=== PATIENT | female | born 1945 | race Caucasian/White ===

== ENCOUNTER 2016-08-27 09:45 | Observation (INO) | payer OTHER ==
[~2016-08-27] VITALS: Ht 154.9 cm; Wt 79.4 kg
--- NOTE | 2016-08-27 09:50 | NUR ---
PT COMPLAINS OF 2 DAYS OF FEELING DIZZY WHEN SHE CHANGES POSITION. DENIES CP/SOB. CALLED HER PMD BUT THEY COULDN'T GET HER IN UNTIL 430 THIS AFTERNOON. ALSO STATES THAT WHEN SHE GETS DIZZY SHE HAS NAUSEA
--- NOTE | 2016-08-27 09:54 | ED AMS/SEIZURE/WEAK/DIZZY ---
History of Present Illness General Chief Complaint: Dizziness Stated Complaint: DIZZY,NAUSEA X 2 DAYS Vital Signs & Intake/Output Vital Signs & Intake/Output Vital Signs Date Time Temp Pulse Resp B/P B/P Pulse O2 O2 Flow FiO2 Mean Ox Delivery Rate 08/28 1212 97.0 51 18 128/64 96 Room Air Room Air 08/28 0946 62 181/75 08/28 0905 96.8 55 20 181/75 95 Room Air 08/28 0532 97.1 52 16 133/77 97 08/27 2331 96.6 57 16 131/64 95 Room Air 08/27 2020 96.5 55 20 124/62 97 Room Air 08/27 1806 56 16 138/60 97 Room Air Room Air 08/27 1700 53 16 150/66 98 Room Air 08/27 1544 97.9 53 16 176/72 98 Room Air ED Intake and Output 08/28 0000 08/27 1200 Intake Total Output Total Balance Patient 175 lb Weight Allergies Coded Allergies: No Known Allergies (08/27/16) Reconcile Medications Atorvastatin Calcium 80 MG TABLET 20 MG PO 1700 HIGH CHOLESTEROL Meclizine HCl 12.5 MG TABLET 12.5 MG PO TID PRN DIZZINESS/VERTIGO Meloxicam 15 MG TABLET 1 TAB PO DAILY PAIN (Reported) Triage Note: PT COMPLAINS OF 2 DAYS OF FEELING DIZZY WHEN SHE CHANGES POSITION. DENIES CP/SOB. CALLED HER PMD BUT THEY COULDN'T GET HER IN UNTIL 430 THIS AFTERNOON. ALSO STATES THAT WHEN SHE GETS DIZZY SHE HAS NAUSEA Past History Travel History Traveled to [place] past 21 day No Medical History Neurological: NONE EENT: NONE Cardiovascular: NONE Respiratory: NONE Gastrointestinal: NONE Hepatic: NONE Renal: NONE Musculoskeletal: rheumatoid arthritis Psychiatric: NONE Endocrine: NONE Blood Disorders: NONE Cancer(s): NONE UNIT REACTOR OPERATOR/Reproductive: NONE Psychosocial History What is your primary language Northern Irish Tobacco Use: Never used ETOH Use: denies use Illicit Drug Use: denies illicit drug use Progress Plan of Care: Orders Procedure Date/time Status Vital Signs 08/28 0838 Active Teach/Educate 08/28 0838 Active Pain Treatment and Response 08/28 08 Active Nutritional Intake, Monitor 08/28 0838 Active Isolation 08/28 0838 Active Intake & Output 08/28 0838 Active Patient Care Conference 08/28 0838 Active Activity/Ambulation 08/28 0838 Active Change service to 08/28 0834 Active CBC WITHOUT DIFFERENTIAL 08/28 0600 Complete BASIC ELECTROLYTES PLUS BUN&CR 08/28 0600 Complete EKG 08/28 0106 Active Discharge Patient 08/28 UNK Active Regular Diet 08/27 D Active TROPONIN LEVEL 08/27 1703 Complete PT Evaluate & Treat 08/[address] in observation 08/27 1523 Active Pathway - chart 08/27 1517 Active Patient Data 08/27 1517 Active Code Status 08/27 1517 Active Add-on Test (ER Only) 08/27 1453 Active [place] Coma Scale 08/27 1312 Active Intake & Output 08/27 1100 Active THYROID STIMULATING HORMONE 08/27 1038 Complete LIPID PANEL 08/27 1038 Complete GLYCOSYLATED HGB 08/27 1038 Complete House Staff 08/27 UNK Active VTE Mechanical Prophylaxis 08/27 UNK Active Vital Signs 08/27 UNK Active Telemetry/Faculty Research Physician 08/27 UNK Active NIH Stroke Scale 08/27 UNK Active Current Medications Sig/Garima Start time Last Medication Dose Stop Time Status Admin Aspirin Buffered 81 MG DAILY 08/28 1000 AC 08/28 (Ecotrin) 0945 Enoxaparin Sodium 40 MG DAILY 08/28 1000 AC 08/28 (Lovenox) 0945 Lisinopril 10 MG DAILY 08/28 1000 AC 08/28 (Prinivil) 0946 Meclizine HCl 12.5 MG TID 08/27 2200 AC 08/28 (Antivert) 0945 Atorvastatin Calcium 80 MG 1700 08/27 1700 AC 08/27 (Lipitor) 2308 Acetaminophen 650 MG Q6P PRN 08/27 1530 AC (Tylenol) Acetaminophen/ 1 TAB Q6P PRN 08/27 1530 AC Hydrocodone Bitart (Vicodin) Oxycodone HCl 10 MG Q6P PRN 08/27 1530 AC (Roxicodone) Laboratory Tests 08/28/16 0530: Anion Gap 5, Estimated GFR > 60, BUN/Creatinine Ratio 28.6 H, CBC w Diff NO MAN DIFF REQ, RBC 4.37, MCV 88.4, MCH 29.4, RDW 15.4 H, MPV 9.3, Gran % 35.7 L, Lymphocytes % 53.8 H, Monocytes % 8.5, Eosinophils % 1.2, Basophils % 0.8, Absolute Granulocytes 1.9, Absolute Lymphocytes 2.9, Absolute Monocytes 0.5, Absolute Eosinophils 0.1, Absolute Basophils 0, PUBS MCHC 33.3 08/27/16 1801: Troponin I < 0.01 Departure Departure Condition: Stable Referrals: BRAULIO CELIS,LYDIA Holliday (PCP/Family) Departure Forms: Customer Survey General Discharge Information Prescriptions: Current Visit Scripts Meclizine HCl 12.5 MG PO TID PRN DIZZINESS/VERTIGO #30 TAB Atorvastatin Calcium 20 MG PO 1700 #30 TAB
--- NOTE | 2016-08-27 10:30 | NUR ---
IV EST #20 LABS DRAWN AND SENT TO THE LAB
[2016-08-27] MEDS ORDERED: MELOXICAM15 M1 PO (10:43)
[2016-08-27 10:50] LABS: ABSOLUTE BASOPHIL COUNT 0.1 /CUMM (0.0-0.2); ABSOLUTE EOSINOPHIL COUNT 0.1 /CUMM (0.0-0.7); ABSOLUTE GRANULOCYTE CT 2.3 /CUMM (1.4-6.5); ABSOLUTE LYMPH COUNT 2.2 /CUMM (1.2-3.4); ABSOLUTE MONOCYTE COUNT 0.4 /CUMM (0.10-0.60); BASOPHIL % 1.1 % (0.0-2.0); EOSINOPHIL % 1.1 % (0-5); GRANULOCYTE % 45.9 % (42.2-75.2); HEMATOCRIT 40.4 % (37-47); MEAN CORPUSCULAR HGB 29.5 PG (27.0-31.0); MEAN CORPUSCULAR HGB CONC 33.4 G/DL (33.0-37.0); MEAN CORPUSCULAR VOLUME 88.3 FL (81.0-99.0); MEAN PLATELET VOLUME 9.1 FL (7.4-10.4); PLATELET COUNT 233 /CUMM (130-400); RBC DISTRIBUTION WIDTH 15.9 % (11.5-14.5); RED BLOOD CELL CT 4.58 /CUMM (4.20-5.40)
--- NOTE | 2016-08-27 10:59 | NUR ---
PT CHANGED INTO GOWN AND PLACED ON MONITOR
--- NOTE | 2016-08-27 11:04 | NUR ---
EVARISTO Villar AT BEDSIDE
--- NOTE | 2016-08-27 11:09 | ED AMS/SEIZURE/WEAK/DIZZY ---
History of Present Illness General Chief Complaint: Dizziness Stated Complaint: DIZZY,NAUSEA X 2 DAYS Source: patient Exam Limitations: no limitations Vital Signs & Intake/Output Vital Signs & Intake/Output Vital Signs Date Time Temp Pulse Resp B/P B/P Pulse O2 O2 Flow FiO2 Mean Ox Delivery Rate 08/28 1212 97.0 51 18 128/64 96 Room Air Room Air 08/28 0946 62 181/75 08/28 0905 96.8 55 20 181/75 95 Room Air 08/28 0532 97.1 52 16 133/77 97 08/27 2331 96.6 57 16 131/64 95 Room Air 08/27 2020 96.5 55 20 124/62 97 Room Air 08/27 1806 56 16 138/60 97 Room Air Room Air 08/27 1700 53 16 150/66 98 Room Air 08/27 1544 97.9 53 16 176/72 98 Room Air ED Intake and Output 08/28 0000 08/27 1200 Intake Total Output Total Balance Patient 175 lb Weight Allergies Coded Allergies: No Known Allergies (08/27/16) Triage Note: PT COMPLAINS OF 2 DAYS OF FEELING DIZZY WHEN SHE CHANGES POSITION. DENIES CP/SOB. CALLED HER PMD BUT THEY COULDN'T GET HER IN UNTIL 430 THIS AFTERNOON. ALSO STATES THAT WHEN SHE GETS DIZZY SHE HAS NAUSEA Triage Nurses Notes Reviewed? yes Onset: Abrupt Duration: gone now, intermittent Timing: recent history Severity: moderate Severity Numbers: 5 HPI: Patient is a 71-year-old female with an unremarkable past medical history who presents to emergency room with a 3 day history of acute onset of intermittent room spinning sensation and dizziness made worse with body movement and head movements. Patient has associated symptoms of chills and nausea at the time of onset of her vertigo-like symptoms.. Denies any fevers blurred vision ear pain sore throat facial droop paresthesia photophobia chest pain abdominal pain Patient does complain of a mild generalized headache. It is noted to me that when the patient's daughter does present to the emergency room she states that patient has been confused and has had unsteady gait. She denies any slurred speech or facial droop (ASHLI GEORGE) Reconcile Medications Atorvastatin Calcium 80 MG TABLET 20 MG PO 1700 HIGH CHOLESTEROL Meclizine HCl 12.5 MG TABLET 12.5 MG PO TID PRN DIZZINESS/VERTIGO Meloxicam 15 MG TABLET 1 TAB PO DAILY PAIN (Reported) (DELIA CELIS,PAYTON) Past History Travel History Traveled to [place] past 21 day No Medical History Any Pertinent Medical History? 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 No (ASHLI GEORGE) Review of Systems Review of Systems Constitutional: Reports: no symptoms. EENTM: Reports: no symptoms. Respiratory: Reports: no symptoms. Cardiovascular: Reports: no symptoms. GI: Reports: see HPI, nausea. Genitourinary: Reports: no symptoms. Musculoskeletal: Reports: no symptoms. Skin: Reports: no symptoms. Neurological/Psychological: Reports: no symptoms. Hematologic/Endocrine: Reports: no symptoms. Immunologic/Allergic: Reports: no symptoms. All Other Systems: Reviewed and Negative (ASHLI GEORGE) Physical Exam Physical Exam General Appearance: no apparent distress, alert, comfortable Comments: Well-developed well-nourished person in no acute distress HEENT: Normal EENT exam, extraocular motion intact, no nystagmus. Pupils equally round and reactive to light and accommodation. Nose is atraumatic. External auditory canal and Tympanic membranes clear. Pharynx normal. No swelling or edema. Neck: Supple, no lymphadenopathy, normal range of motion without pain or tenderness Back: Nontender, no CVA tenderness. Cardiovascular: Regular rate and rhythms no murmurs rubs or gallops, normal JVP Respiratory: Chest nontender. No respiratory distress.breath sounds clear to auscultation bilaterally Abdomen: Soft, nontender nondistended, no appreciable organomegaly. Normal bowel sounds. No ascites Extremity: No edema, no calf tenderness to palpation, normal and equal pulses. Neuro: Alert oriented x3, motor sensory normal, cranial nerves II through XII grossly intact. Modify Aurora-Hallpike reproduced room spinning sensation Skin: No appreciable rash on exposed skin, skin is warm and dry. Psych: Mood and affect is normal, memory and judgment is normal. Core Measures ACS in differential dx? No CVA/TIA Diagnosis: Yes NIH Stroke Scale: Total 0 Date Last Known Well: 08/24/16 Time Last Known Well: 1553 Neurological S/S of CVA: Acute Confusion, Dizziness Reason tPA not ordered Medical Contraindication Severe Sepsis Present: No Septic Shock Present: No Bedside Dysphagia Screen Bedside Swallow Eval Done: Yes Result of Evaluation: Pass (VIVIANA LOERA,ASHLI) Progress Differential Diagnosis: arrythmia, alcohol intoxication, anemia, benign positional vertigo, CVA/stroke, dehydration, drug intoxication, encephalitis, electrolyte imbalance, GI bleed, hypoglycemia, hypoxia, intracranial Hem., intracranial mass/tumor, labrynthitis, meningitis, Meniere's disease, migraine ESTES, multiple sclerosis, pneumonia, postural hypotension, presyncope, post- traumatic vertigo, sepsis, seizure disorder, subarachnoid Hem., UTI/pyelo, vertebrobasilar insuff Plan of Care: Orders Procedure Date/time Status Vital Signs 08/28 0838 Active Teach/Educate 08/28 0838 Active Pain Treatment and Response 08/28 0838 Active Nutritional Intake, Monitor 08/28 0838 Active Isolation 08/28 0838 Active Intake & Output 08/28 0838 Active Patient Care Conference 08/28 0838 Active Activity/Ambulation 08/28 0838 Active Change service to 08/28 0834 Active CBC WITHOUT DIFFERENTIAL 08/28 0600 Complete BASIC ELECTROLYTES PLUS BUN&CR 08/28 0600 Complete EKG 08/28 0106 Active Discharge Patient 08/28 UNK Active Regular Diet 08/27 D Active TROPONIN LEVEL 08/27 1703 Complete PT Evaluate & Treat 08/[address] in observation 08/27 1523 Active Pathway - chart 08/27 1517 Active Patient Data 08/27 1517 Active Code Status 08/27 1517 Active Add-on Test (ER Only) 08/27 1453 Active [place] Coma Scale 08/27 1312 Active Intake & Output 08/27 1100 Active THYROID STIMULATING HORMONE 08/27 1038 Complete LIPID PANEL 08/27 1038 Complete GLYCOSYLATED HGB 08/27 1038 Complete House Staff 08/27 UNK Active VTE Mechanical Prophylaxis 08/27 UNK Active Vital Signs 08/27 UNK Active Telemetry/Rib Puller 08/27 UNK Active NIH Stroke Scale 08/27 UNK Active Current Medications Sig/Garima Start time Last Medication Dose Stop Time Status Admin Aspirin Buffered 81 MG DAILY 08/28 1000 AC 08/28 (Ecotrin) 0945 Enoxaparin Sodium 40 MG DAILY 08/28 1000 AC 08/28 (Lovenox) 0945 Lisinopril 10 MG DAILY 08/28 1000 AC 08/28 (Prinivil) 0946 Meclizine HCl 12.5 MG TID 08/27 2200 AC 08/28 (Antivert) 0945 Atorvastatin Calcium 80 MG 1700 08/27 1700 AC 08/27 (Lipitor) 2308 Acetaminophen 650 MG Q6P PRN 08/27 1530 AC (Tylenol) Acetaminophen/ 1 TAB Q6P PRN 08/27 1530 AC Hydrocodone Bitart (Vicodin) Oxycodone HCl 10 MG Q6P PRN 08/27 1530 AC (Roxicodone) Laboratory Tests 08/28/16 0530: Anion Gap 5, Estimated GFR > 60, BUN/Creatinine Ratio 28.6 H, CBC w Diff NO MAN DIFF REQ, RBC 4.37, MCV 88.4, MCH 29.4, RDW 15.4 H, MPV 9.3, Gran % 35.7 L, Lymphocytes % 53.8 H, Monocytes % 8.5, Eosinophils % 1.2, Basophils % 0.8, Absolute Granulocytes 1.9, Absolute Lymphocytes 2.9, Absolute Monocytes 0.5, Absolute Eosinophils 0.1, Absolute Basophils 0, PUBS MCHC 33.3 08/27/16 1801: Troponin I < 0.01 Patient on initial presentation showed no physical exam findings of neurological dysfunction in which she was initially treated for positional vertigo with scopolamine fluids and meclizine. Patient states that she had minimal improvement of symptoms where I ambulate patient and she noted to have significant gait instability Even though the patient does have unremarkable CT scan findings the patient did come in significantly hypertensive and with physical exam findings of gait instability and confusion headache that I advised patient to be admitted for concerns of cerebral or cerebellar infarct. Patient was prophylactically administered aspirin case monitor placed House staff did discussed admission with neurologist Dr. Nelson He was aware admission and does not state that patient needs emergent MRI carotid ultrasounds will be established Discussed admission with DR LIN (ASHLI GEORGE) Diagnostic Imaging: Viewed by Me: CT Scan. Radiology Impression: no acute abnormality Initial ED EKG: normal p-waves, normal QRS complex, normal sinus rhythm, nsr, 69 bpm Comments: PATIENT: GAL OBANDO PRESENT AGE: 71 PATIENT ACCOUNT NO: [id number] : 46 LOCATION: [facility] ORDERING PHYSICIAN: ASHLI LOERA SERVICE DATE: 08/27/161105 EXAM TYPE: CAT - CT HEAD WO IV CONTRAST EXAMINATION: CT HEAD WITHOUT CONTRAST CLINICAL INFORMATION: Dizziness. Nausea. COMPARISON: None TECHNIQUE: Contiguous axial imaging was performed from the skull base to vertex without intravenous administration of contrast. DLP: 606 mGy-cm FINDINGS: There is no evidence of acute intracranial hemorrhage or territorial infarction. No abnormal mass effect or midline shift is seen. Orozco to white matter differentiation is well preserved. No extra-axial fluid collections are identified. The ventricles are normal in size. There is no significant abnormal attenuation within the brain parenchyma. The osseous structures and soft tissues demonstrate no acute abnormalities. The mastoid air cells and visualized portions of the paranasal sinuses are well aerated. IMPRESSION: No acute intracranial pathology. DICTATED BY: DOMINICK BAKER MD (SAHLI GEORGE) Departure Departure Disposition: STILL A PATIENT Condition: Guarded Clinical Impression Primary Impression: CVA (cerebral vascular accident) Referrals: LYDIA RAMSEY MD (PCP/Family) Departure Forms: Customer Survey General Discharge Information Observation Note Spoke With: DI CHOUDHURY MD Physician Advisor Notified: JUSTIN CELIS,LYDIA Dominguez Place Patient In: Non-ED OBS Care Area Rationale for Observation: My rational for observation is as follows [patient requires carotid ultrasound, MRI frequent neurochecks neurology consultation for concerns of cerebellar infarct]. (ASHLI GEORGE) Departure Prescriptions: Current Visit Scripts Meclizine HCl 12.5 MG PO TID PRN DIZZINESS/VERTIGO #30 TAB Atorvastatin Calcium 20 MG PO 1700 #30 TAB PA/POMOLOGIST Co-Sign Statement Statement: ED Attending supervision documentation- [X] I saw and evaluated the patient. I have also reviewed all the pertinent lab results and diagnostic results. I agree with the findings and the plan of care as documented in the PA's/POMOLOGIST's documentation. [X] I have reviewed the ED Record and agree with the PA's/POMOLOGIST's documentation. [] Additions or exceptions (if any) to the PAs/POMOLOGIST's note and plan are summarized below: [] (DELIA CELIS,PAYTON) Critical Care Note Critical Care Note Critical Care Time: 30-74 min (VIVIANA LOERA,ASHLI)
--- NOTE | 2016-08-27 11:10 | NUR ---
PT TO CT VIA STRETCHER
--- NOTE | 2016-08-27 11:28 | NUR ---
PT AMBULATORY TO BATHROOM WITH STAGGERING UNSTEADY GAIT. GIVEN WHEELCHAIR FOR ASSIST BACK TO ROOM
--- NOTE | 2016-08-27 12:07 | NUR ---
PT NOTED TO REMAIN HYPERTENSIVE 200/104 MANUALLY AND SINUS JERRY WITHOUT ECTOPY RATE 52-[address] LIN AWARE. MEDICATED WITH VASOTEC PER eMAR AND IMPROVEMENT NOTED WITH BP 182/76 AFTER ADMINISTRATION
--- NOTE | 2016-08-27 12:24 | CT SCAN REPORT ---
EXAMINATION: CT HEAD WITHOUT CONTRAST CLINICAL INFORMATION: Dizziness. Nausea. COMPARISON: None TECHNIQUE: Contiguous axial imaging was performed from the skull base to vertex without intravenous administration of contrast. DLP: 606 mGy-cm FINDINGS: There is no evidence of acute intracranial hemorrhage or territorial infarction. No abnormal mass effect or midline shift is seen. Orozco to white matter differentiation is well preserved. No extra-axial fluid collections are identified. The ventricles are normal in size. There is no significant abnormal attenuation within the brain parenchyma. The osseous structures and soft tissues demonstrate no acute abnormalities. The mastoid air cells and visualized portions of the paranasal sinuses are well aerated. IMPRESSION: No acute intracranial pathology.
--- NOTE | 2016-08-27 13:11 | NUR ---
AMBULATORY WITH PA WITH UNSTEADY GAIT
--- NOTE | 2016-08-27 14:51 | NUR ---
MEDICATED WITH ASPIRIN PER eMAR AND #20 EST TO [facility] FOR ANGIOGRAM CT. CALL JASSO IN [place]. OFFERS NO SIGNIFICANT COMPLAINTS AT THIS TIME. INFORMED WAITING PROVIDED.
--- NOTE | 2016-08-27 15:14 | History & Physical ---
WAQAR HASSAN MD 08/27/16 1514: General Information and HPI MD Statement: I have seen and personally examined GAL OBANDO and documented this H&P. The patient is a 71 year old F who presented with a patient stated chief complaint of [bilateral leg weakness and gait instability]. Source of Information: patient, family History of Present Illness: This 71-year-old healthy female with a past medical history of bilateral osteoarthritis of the knee who regularly takes meloxicam for pain control who presented to the [facility] after having persistent dizziness and imbalance while walking for the last 2-3 days. The patient was accompanied by her daughter at the bedside who gave most of the history regarding the patient's symptoms. As per the daughter, she has noticed that her mother has been more dizzy, feeling weak and has been having intermittent dizziness. She describes the dizziness as sudden and feels like this room is spinning around her. Dizziness is more pronounced with changes in position. This is also associated with gait instability and had couple of occasions when she nearly lost her balance and fell down but never had a fall. This is all new for the patient and has been ongoing and worsening in the last 1 week. She also complains of nausea but did not have any episode of vomiting. No difficulty swallowing or complains of dysphagia, but as per the patient's daughter she has refused to eat in the restaurant or couple of occasions in the last 1 week due to persistent nausea. The patient is not on any home medications except for meloxicam for the osteoarthritis. Allergies/Medications Allergies: Coded Allergies: No Known Allergies (08/27/16) Home Med list Meloxicam 15 MG TABLET 1 TAB PO DAILY PAIN (Reported) Past History Travel History Traveled to [place] past 21 day No Medical History Neurological: NONE EENT: NONE Cardiovascular: NONE Respiratory: NONE Gastrointestinal: NONE Hepatic: NONE Renal: NONE Musculoskeletal: osteoarthritis Psychiatric: NONE Endocrine: NONE Blood Disorders: NONE Cancer(s): NONE CUSTOMER SALES SERVICE MANAGER/Reproductive: NONE Surgical History Surgical History: non-contributory Past Family/Social History Psychosocial History Where do you live? Home Who Do You Live With? spouse, child Services at Home: None Primary Language: Iraqi Smoking Status: Never Smoked ETOH Use: denies use Illicit Drug Use: denies illicit drug use Review of Systems Review of Systems Constitutional: Reports: see HPI. Respiratory: Denies: hemoptysis, orthopnea, short of breath, sputum production. GI: Reports: abdominal pain, nausea, vomiting. Denies: constipation, diarrhea, bowel incontinence. Genitourinary: Denies: dysuria, frequency. Musculoskeletal: Reports: joint pain. Denies: back pain, gout, joint swelling. Skin: Denies: change in skin color, dryness, erythema, jaundice, lesions. Neurological/Psychological: Reports: see HPI, ataxia, numbness. Exam & Diagnostic Data Last 24 Hrs of Vital Signs/I&O Vital Signs Date Time Temp Pulse Resp B/P B/P Pulse O2 O2 Flow FiO2 Mean Ox Delivery Rate 08/27 1352 98.0 70 20 161/70 98 Room Air 08/27 1245 68 191/82 08/27 1221 60 16 180/72 96 Room Air 08/27 1206 54 16 182/76 100 Room Air 08/27 1200 55 200/104 08/27 1200 55 16 200/104 99 Room Air 08/27 1140 217/100 08/27 1140 78 207/94 08/27 1059 Room Air 08/27 0948 97.8 68 16 188/76 99 Room Air Intake & Output 08/27 1600 08/27 0800 08/27 0000 Intake Total Output Total Balance Patient 175 lb Weight Physical Exam General Appearance Alert, Oriented X3, Cooperative Skin No Rashes, No Breakdown Skin Temp/Moisture Exam: Warm/Dry HEENT Atraumatic, PERRLA, NO NYSTAGMUS Neck Supple, No JVD Cardiovascular Normal S1, Normal S2 Lungs Clear to Auscultation, Normal Air Movement Abdomen Normal Bowel Sounds, Soft, No Tenderness Neurological Strength at 5/5 X4 Ext, Normal Tone, Sensation Intact, Cranial Nerves 3-12 NL, Reflexes 2+, ATAXIAC GAIT Assessment/Plan Assessment: This is a 71-year-old female with a past medical history not significant for any medical disease and not on any home medication who presented to us with persistent nausea, dizziness and ataxic gait from the last couple of days and has been worsening in the last 24 hours. The patient was found to be in hypertensive urgency in the emergency department Vitals at the time of admission showed a blood pressure of blood pressure of 217/100, respiration rate of 18, pulse rate of 70, saturation of 97% on room air Labs Normal CBC and normal WBC count, chemistries patient has elevated BUNs of 25, HbA1c of 5.7, troponin of 0.01, slightly elevated cholesterol eEKG Shows normal sinus rhythm Head CT is unremarkable and does not show any evidence of head edema Assessment 1. Acute dizziness and vertigo: The patient's symptoms of dizziness and vertigo in association with at ataxic gait raises a suspicion of posterior cerebellar stroke. Other possibility could be benign positional vertigo but informal RACHEL- HILPIKE manuver was negative .The possibility of labrythitis is low too.as no recent URTI. 2. Hypertensive urgency 3. History of osteoarthritis of the knee bilaterally Plan We will monitor the patient on telemetry for 23 hour observation Already spoke to Dr. Dwyer, neurologist attending mammal control agent and discussed the patient's case. He agreed with the thought process of ruling out posterior cerebellar stroke and agreed with carotid ultrasound with the request to comment on the posterior circulation as well .He recommended against the CTA of the head and neck. Would start the patient on aspirin, 325 mg was given in the emergency department was started on 81 mg from tomorrow Moderate dose statin 80 mg Lipitor the first dose today For blood pressure control the patient can be started on an FREDA inhibitor, lisinopril 10 mg daily In the emergency department patient was given IV IV Vasotec 1.5 mg once not to decrease the blood pressure more than 25% in the next 24 hours patient passed bedside swallow evaluation. patient is an head MRI in the morning transthoracic echocardiogram Check another set of troponins is DVT prophylaxis at all time with subcutaneous Lovenox Patient is full code Pain pathways As Ranked By This Provider Problem List: 1. Dizziness Core Measures/Miscellaneous Acute Coronary Syndrome ACS Diagnosis: No Cerebrovascular Accident CVA/TIA Diagnosis: No Congestive Heart Failure CHF Diagnosis: No Venous Thromboembolism VTE Risk Factors: Acute medical illness, Age > 40 [facility] prophylaxis d/t: No contraindications No VTE Pharm Prophylaxis d/t: No contraindications VTE Diagnosis: No VTE Type: NONE VTE Confirmed by (Test): NONE Severe Sepsis Severe Sepsis Present: No Septic Shock Septic Shock Present: No Miscellaneous Documentation Attending Case Discussed With: Dr. Sinclair Primary Care Physician: LYDIA RAMSEY MD Patient sees these Specialists None Level of Patient Care: Telemetry DI SINCLAIR MD 08/27/16 1816: Attending Review Statement Attending Statement Attending Statement: examined this patient, discuss w/resident/PA/BLADDER CLEANER, agreed w/resident/PA/BLADDER CLEANER, discussed with family, reviewed EMR data (avail), discussed with nursing, reviewed images, amended to note Attending Assessment/Plan: The patient is a 71 yo female with h/o OA who presented in the [place] ED with 2 day h/o severe vertigo accompanied by nausea and gait instability. She was noted to be hypertensive with BP 200/104 maximum. She denied any h/o focal weakness, headache, vision disturbance, fever, or recent viral syndrome/ infections. In the ED she received IV Vasotec with a decrease in BP noted. She has no known h/o HTN, HL, DM, etc. Physical Exam: VS: T 9.8, P 68, R 16, BP 188/76-200/104-176/72, PO 99% RA HEENT: eyes- PERRLA, EOMI- no nystagmus chano- dry mucosa w/o lesions Neck: supple, no bruits or JVD Chest: clear Cor: RRR, nl S1, S2 w/o murm Abd: BS+, soft, NT, - HSM Ext: no edema, pulses 2+ Neuro: alert & oriented x 3, non-focal exam- some gait ataxia per resident Labs/Tests/CT head as above Impression/Plan: #Severe Vertigo- differential includes BPPV vs posterior circulation/cerebellar CVA. No nystagmus on exam. Did not improve with Meclizine/Scopolamine/Fluids in ED. Plan: Will bring into telemetry floor under observation status. Q4h neuro checks. Neurology consult (Resident discussed with Dr. Nelson), po ASA & Atorvastatin. MRI brain in morning. Carotid US, ECHO. PT consult = ? vestibular exercises. #HTN Urgencyy- BP significantly elevated upon admission. No h/o HTN. IV vasotec given. Plan: With concern regarding possible CVA would allow some permissive HTN . Would treat with FREDA. #Osteoarthritis Knees- stable at present. Plan: Hold Meloxicam at present. Tylenol prn.
--- NOTE | 2016-08-27 15:41 | NUR ---
PT TO AND FROM U/S VIA STRETCHER. REMAINS SINUS JERRY 52-58 WITHOUT ECTOPY. DENIES CP. AAOX3 AND MENTATING APPROPRIATELY.
--- NOTE | 2016-08-27 16:31 | NUR ---
DR DUNN AT BEDSIDE FOR EVAL AND NEURO ASSESSMENT
--- NOTE | 2016-08-27 16:46 | ULTRASOUND REPORT ---
EXAMINATION: DUPLEX BILATERAL CAROTID ULTRASOUND CLINICAL INFORMATION: Syncope and headache; risk factors include hypertension. COMPARISON: None. TECHNIQUE: Real-time ultrasound and Doppler techniques (integrating B-mode 2D vascular images, Doppler spectral analysis and color flow Doppler imaging) were utilized to interrogate the extracranial carotid and vertebral arteries bilaterally. FINDINGS: Right side: 1. There is no significant plaque in the ECA/ICA region. 2. The common carotid artery velocity is 90 cm/s. 3. The proximal internal carotid artery velocities are 59 cm/s systolic and 16 cm/s diastolic. 4. The external carotid artery velocity is 84 cm/s. Left side: 1. There is no significant plaque in the ECA/ICA region. 2. The common carotid artery velocity is 83 cm/s. 3. The proximal internal carotid artery velocities are 85 cm/s systolic and 22 cm/s diastolic. 4. The external carotid artery velocity is 48 cm/s. ADDITIONAL FINDINGS: 1. The vertebral arteries show antegrade flow. IMPRESSION: 1. RIGHT: No significant stenosis of the proximal right internal carotid artery corresponding to a 0-49% stenosis by velocity criteria. 2. LEFT: No significant stenosis of the proximal left internal carotid artery corresponding to a 0-49% stenosis by velocity criteria. 3. Antegrade flow is seen via the bilateral vertebral arteries.
--- NOTE | 2016-08-27 17:00 | NUR ---
FAMILY AT BEDSIDE. PT AWAITING BED ASSIGNEMENT. BP IMPROVED, REMAINS SINUS JERRY WITH NO COMPLAINTS. MENTATING APPROPRIATELY.
--- NOTE | 2016-08-27 18:07 | NUR ---
REGULAR TRAY ORDERED, REPEAT TROPININ DRAWN AND SENT.
--- NOTE | 2016-08-27 18:14 | Admission Certification ---
Admission Certification Certification Statement - As attending physician, I certify that at the time of - admission, based on clinical presentation, severity of - symptoms, need for further diagnostic testing and - therapeutic interventions, and risk of adverse outcomes - without in-hospital treatment, in my clinical assessment, - this patient requires an acute hospital stay for a minimum - of two nights or longer. I have also considered psychsocial - factors such as support system, advanced age, financial - issues, cognitive issues, and failed out-patient treatments, - past re-admission history, safety of patient, and lack of - compliance as applicable.
--- NOTE | 2016-08-27 18:33 | NUR ---
FOOD PROVIDED TO PT.
--- NOTE | 2016-08-27 23:47 | NUR ---
REPORT RECIEVED FROM VISHAL ALVAREZ
--- NOTE | 2016-08-28 01:34 | NUR ---
PT AWOKEN FOR EKG, BACK TO SLEEP AT THIS TIME. NSR/SINUS JERRY ON MARKETING PROJECT LEAD. HOUSE STAFF AWARE. PT ASLEEP W/RR NOTED. SIDE RAILS IN UPRIGHT POSITION, CALL JASSO WITHIN REACH
--- NOTE | 2016-08-28 02:28 | NUR ---
ED OBS ASSESSMENT COMPLETED AT THIS TIME
--- NOTE | 2016-08-28 05:03 | NUR ---
PT REMAINS ASLEEP AT THIS TIME W/RR NOTED, SIDE RAILS UPRIGHT. CALL JASSO WITHIN REACH. NSR/SINUS BRADYCARDIC ON REPORT MANAGER. HOUSE STAFF AWARE.
--- NOTE | 2016-08-28 05:38 | NUR ---
blood drawn and sent to lab.
[2016-08-28 05:51] LABS: ABSOLUTE BASOPHIL COUNT 0 /CUMM (0.0-0.2); ABSOLUTE EOSINOPHIL COUNT 0.1 /CUMM (0.0-0.7); ABSOLUTE GRANULOCYTE CT 1.9 /CUMM (1.4-6.5); ABSOLUTE LYMPH COUNT 2.9 /CUMM (1.2-3.4); ABSOLUTE MONOCYTE COUNT 0.5 /CUMM (0.10-0.60); BASOPHIL % 0.8 % (0.0-2.0); EOSINOPHIL % 1.2 % (0-5); GRANULOCYTE % 35.7 % (42.2-75.2); HEMATOCRIT 38.6 % (37-47); MEAN CORPUSCULAR HGB 29.4 PG (27.0-31.0); MEAN CORPUSCULAR HGB CONC 33.3 G/DL (33.0-37.0); MEAN CORPUSCULAR VOLUME 88.4 FL (81.0-99.0); MEAN PLATELET VOLUME 9.3 FL (7.4-10.4); PLATELET COUNT 246 /CUMM (130-400); RBC DISTRIBUTION WIDTH 15.4 % (11.5-14.5); RED BLOOD CELL CT 4.37 /CUMM (4.20-5.40); WHITE BLOOD CELL COUNT 5.4 /CUMM (4.8-10.8)
--- NOTE | 2016-08-28 08:25 | PN- Housestaff ---
Subjective Follow-up For: Dizziness /vertigo Subjective: And examined at bedside. She does report improvement in her dizziness. She denies any chest pain, palpitation, increased shortness of breath, fever, chills , any new focal neurological deficit, abdominal pain or dysuria. Patient was observed undergoing PT session which she did remarkably well. No Acute overnight event reported by nursing staff Review of Systems Constitutional: Reports: no symptoms. Objective Last 24 Hrs of Vital Signs/I&O Vital Signs Date Time Temp Pulse Resp B/P B/P Pulse O2 O2 Flow FiO2 Mean Ox Delivery Rate 08/28 1212 97.0 51 18 128/64 96 Room Air Room Air 08/28 0946 62 181/75 08/28 0905 96.8 55 20 181/75 95 Room Air 08/28 0532 97.1 52 16 133/77 97 08/27 2331 96.6 57 16 131/64 95 Room Air 08/27 2020 96.5 55 20 124/62 97 Room Air 08/27 1806 56 16 138/60 97 Room Air Room Air 08/27 1700 53 16 150/66 98 Room Air Intake & Output 08/28 1600 08/28 0800 08/28 0000 Intake Total Output Total Balance Patient 79.379 kg Weight Physical Exam General Appearance: Alert, Oriented X3, Cooperative HEENT: Atraumatic, PERRLA, EOMI, Mucous Membr. moist/pink Neck: Supple, No JVD, No thryomegaly Cardiovascular: Regular Rate, Normal S1, Normal S2 Lungs: Clear to Auscultation, Normal Air Movement Abdomen: Normal Bowel Sounds, Soft, No Tenderness Neurological: Normal Gait, Cranial Nerves 3-12 NL, Reflexes 2+ Assessment/Plan Assessment: This is a 71-year-old very pleasant lady with a history of osteoarthritis, [place] with complaints of acute onset of dizziness and vertigo. SHe was noted to have elevated systolic blood pressure of over 200. Impression and plan Vertigo/Dizziness No other focal neurological deficits were noted, patient denied any tendinitis, migraine headaches, head trauma, posterior cerebellar stroke was ruled out with CT and subsequent MRI. Ordered Doppler were negative for any significant stenosis. Given her hypertensive urgency on presentation this is most likely hypertensive induced dizziness. Patient improvement his symptoms seem to coincide with a decrease of her blood pressure after receiving lisinopril. Patient will also be given meclizine 3 times a day as needed for dizziness. #Hypertensive urgency Patient blood pressure was controlled with lisinopril 10 mg. Will be discharged with the same medication and instructed to follow-up with primary care physician. #Episodes of bradycardia Patient did remain asymptomatic. She went given referral to follow-up with sunday school missionary (Dr. Davis's office). Problem List: 1. Dizziness 2. Hypertensive urgency Pain Ratin Pain Location: none Pain Goal: Remain pain free Pain Plan: per pain pathway Tomorrow's Labs & Rationales: none-discharged
--- NOTE | 2016-08-28 08:56 | MRI REPORT ---
EXAMINATION: MR BRAIN WITHOUT CONTRAST CLINICAL INFORMATION: Posterior cerebellar stroke. Dizziness and ataxia. COMPARISON: CT scan of the head 08/27/2016. TECHNIQUE: MRI of the brain without contrast was obtained using routine sequences. FINDINGS: There are a few scattered nonspecific foci of T2 FLAIR signal hyperintensity within the periventricular white matter that most likely represent a chronic manifestation of small vessel ischemia. There is no acute territorial infarct. No pathological magnetic susceptibility artifact. Intracranial vascular flow voids including the major dural venous sinuses are preserved. There is no intracranial mass effect or midline shift. No abnormal extra-axial collection. Lateral and third ventricles are normal. No hydrocephalus. Midline structures including the cervicomedullary junction are normal. Bone marrow signal intensity is normal. There is no mastoid or middle ear effusion. There is mild paranasal sinus disease primarily affecting the ethmoid air cells and maxillary sinus. IMPRESSION: There are a few scattered chronic small vessel ischemic changes within the periventricular white matter. No evidence of acute territorial infarct or hemorrhage.
--- NOTE | 2016-08-28 09:46 | NUR ---
PT MEDICATED PER EMAR. HOUSE STAFF AT BEDSIDE FOR EVALUATION AND AWARE OF PT HEARTRATE AND STATES TO GIVE LISINOPRIL DUE TO PT HEARTRATE
[2016-08-28 12:12] VITALS: BP 128/64
--- NOTE | 2016-08-28 12:12 | NUR ---
PT AND FAMILY INQUIRING ABOUT DISCHARGE. BRIGHT PAGED AT 210 AND REPORTS PT CASE RANJITH BE DISCUSSED WITH ATTENDING THIS AFTERNOON. PT AND FAMILY UPDATED ON PLAN OF CARE AT THIS TIME. PT REPORTS FEELING WELL AND OFFERS NO COMPLAINTS AT THIS TIME.
[2016-08-28] MEDS ORDERED: MECLIZINE HCL12.5 M1 PO (13:52)
--- NOTE | 2016-08-28 13:54 | Patient Discharge Instructions ---
Discharge Instructions General Discharge Information You were seen/treated for: DIZZINESS/VERTIGO Special Instructions: Please seek medical attention if your dizziness/vertigo worsens Please follow up with your primary care within 1 week You have been started a blood pressure medication of Lisinopril 10 mg, please check with your primary care on how long you will need to be on this medcation Please follow up with Dr Rea (cotton farmworker) regarding your borderline low heart rate Acute Coronary Syndrome Inclusion Criteria At DC or during hospital stay patient has or had the following: ACS DIAGNOSIS No Discharge Core Measures Meds if any: Prescribed or Continued at Discharge Meds if any: NOT Prescribed or Continued at Discharge Congestive Heart Failure Inclusion Criteria At DC or during hospital stay patient has or had the following: CHF DIAGNOSIS No Discharge Core Measures Meds if any: Prescribed or Continued at Discharge Meds if any: NOT Prescribed or Continued at Discharge Cerebrovascular accident Inclusion Criteria At DC or during hospital stay patient has or had the following: CVA/TIA Diagnosis Yes Discharge Core Measures Meds if any: Prescribed or Continued at Discharge Meds if any: NOT Prescribed or Continued at Discharge Venous thromboembolism Inclusion Criteria VTE Diagnosis No VTE Type NONE VTE Confirmed by (Test) NONE Discharge Core Measures - Per Current guidelines, there needs to be overlap - treatment for the first 5 days of Warfarin therapy. - If discharged on Warfarin prior to 5 days of - overlap therapy, the patient will need to be - assessed for post discharge needs including - *Post discharge parental anticoagulation - *Warfarin and/or parental anticoagulation education - *Follow up date to check INR post discharge At least 5 days overlap therapy as Inpatient No Meds if any: Prescribed or Continued at Discharge Note: Overlap Therapy is Warfarin and Anticoagulant Meds if any: NOT Prescribed or Continued at Discharge
--- NOTE | 2016-08-28 14:04 | ECHOCARDIOGRAM REPORT ---
GAL OBANDO Age: 71 : 1945 Gender: F Exam Date: 08/28/2016 10:42 Exam Location: ER Ht (in): 61 Wt (lb): 175 BSA: 1.88 BP: 176 / 72 Ordering Physician: WAQAR HASSAN MD Referring Physician: WAQAR HASSAN MD Technologist: Yonathan Cintron GINA Room Number: 20 Indications: STROKE Rhythm: Sinus Technical Quality: Good FINDINGS Left Ventricle Normal size left ventricle. Normal left ventricular wall thickness. Normal left ventricular ejection fraction visually estimated at > 60%. No obvious regional wall motion abnormalities. Right Ventricle Normal right ventricular size and function. Right Atrium Normal right atrial size. Left Atrium Normal left atrial size. Mitral Valve Mild mitral annular calcification. Mild mitral regurgitation. Aortic Valve Diffuse thickening of the aortic valve cusps with reduced excursion. Mild aortic stenosis. Mild aortic regurgitation. Tricuspid Valve Tricuspid valve not well visualized, grossly normal. Trace tricuspid regurgitation. Right ventricular systolic pressure estimated to be elevated at 47 mmHg. Pulmonic Valve Pulmonic valve not well visualized, grossly normal. Mild pulmonic regurgitation. Pericardium No pericardial effusion. Great Vessels Normal size aortic root. CONCLUSIONS Normal left ventricular ejection fraction visually estimated at > 60%. Mild mitral regurgitation. Mild aortic stenosis. Mild aortic regurgitation. Trace tricuspid regurgitation. Right ventricular systolic pressure estimated to be elevated at 47 mmHg. Mild pulmonic regurgitation. Lucio Byers M.D. (Electronically Signed) Final Date: 28 Aug 2016 14:03 MEASUREMENTS (Male / Female) Normal Values 2D ECHO LV Diastolic Diameter PLAX 5.1 cm 4.2 - 5.9 / 3.9 - 5.3 cm LV Systolic Diameter PLAX 2.6 cm 2.1 - 4.0 cm LV Fractional Shortening PLAX 49.0 % 25 - 46 % LV Ejection Fraction 2D Teich 80.1 % IVS Diastolic Thickness 1.1 cm LVPW Diastolic Thickness 0.9 cm LV Relative Wall Thickness 0.4 RV Internal Dim ED PLAX 2.8 cm 1.9 - 3.8 cm LVOT Diameter 1.7 cm Aortic Root Diameter 2.6 cm LA Systolic Diameter LX 3.6 cm 3.0 - 4.0 / 2.7 - 3.8 cm LA Volume 53.0 cm 18 - 58 / 22 - 52 cm DOPPLER AV Peak Velocity 207.0 cm/s AV Peak Gradient 17.1 mmHg AV Mean Velocity 146.0 cm/s AV Mean Gradient 10.0 mmHg AV Velocity Time Integral 61.3 cm AI Deceleration [place] 136.0 cm/s AI Peak Velocity 331.0 cm/s AI Pressure Half Time 726.0 ms AI Peak Gradient 43.8 mmHg LVOT Peak Velocity 102.0 cm/s LVOT Peak Gradient 4.2 mmHg LVOT Mean Velocity 61.9 cm/s LVOT Mean Gradient 2.0 mmHg LVOT Velocity Time Integral 30.3 cm LVOT Stroke Volume 68.8 cm AV Area Cont Eq vti 1.1 cm AV Area Cont Eq pk 1.1 cm MV Peak Velocity 121.0 cm/s MV Peak Gradient 5.9 mmHg MV Mean Velocity 65.4 cm/s MV Mean Gradient 2.0 mmHg Mitral E Point Velocity 110.0 cm/s Mitral A Point Velocity 80.0 cm/s Mitral E to A Ratio 1.4 MV PHT Velocity 126.0 cm/s MV Deceleration [place] 411.0 cm/s MV Pressure Half Time 92.0 ms MV Area PHT 2.4 cm MV Deceleration Time 197.0 ms TR Peak Velocity 324.0 cm/s TR Peak Gradient 42.0 mmHg Right Atrial Pressure 5.0 mmHg Pulmonary Artery Systolic Pressu 47.0 mmHg Right Ventricular Systolic Press 47.0 mmHg PV Peak Velocity 99.3 cm/s PV Peak Gradient 3.9 mmHg PV Mean Velocity 76.2 cm/s PV Mean Gradient 3.0 mmHg PV Velocity Time Integral 32.4 cm LV E' Lateral Velocity 10.1 cm/s Mitral E to LV E' Lateral Ratio 10.9 LV E' Septal Velocity 10.4 cm/s Mitral E to LV E' Septal Ratio 10.6
[2016-08-28] MEDS ORDERED: ATORVASTATIN CA80 M1 PO (14:07)
[2016-08-28] MEDS ORDERED: ATORVASTATIN CA20 M1 PO (14:24)
--- NOTE | 2016-08-28 14:27 | Cons- Neurology ---
General Information and HPI Consulting Request Date of Consult: 08/28/16 Requested By: JOSIE VALENZUELA MD Source of Information: patient, family Exam Limitations: no limitations History of Present Illness: 71-year-old female who presents with a few day history of imbalance and dizziness Per patient's daughter she seemed mildly confused She was staggering when walking She did have a headache about 4 days ago which seemed to resolve She complained of nausea but no vomiting There was no focal weakness or incoordination She describes the dizziness as a sense of vertigo The symptoms seem to be progressive prompting visit to [facility] There was no head trauma or loss of consciousness Initial visit she had a systolic of over 200 Allergies/Medications Allergies: Coded Allergies: No Known Allergies (08/27/16) Home Med List: Atorvastatin Calcium 80 MG TABLET 20 MG PO 1700 HIGH CHOLESTEROL Meclizine HCl 12.5 MG TABLET 12.5 MG PO TID PRN DIZZINESS/VERTIGO Meloxicam 15 MG TABLET 1 TAB PO DAILY PAIN (Reported) Current Medications: Current Medications Sig/Garima Start time Last Medication Dose Route Stop Time Status Admin Acetaminophen 650 MG Q6P PRN 08/27 1530 AC PO Acetaminophen/ 1 TAB Q6P PRN 08/27 1530 AC Hydrocodone Bitart PO Aspirin 0 .STK-MED ONE 08/27 1449 DC PO Aspirin 325 MG ONCE ONE 08/27 1430 DC 08/27 PO 08/27 1431 1451 Aspirin Buffered 81 MG DAILY 08/28 1000 AC 08/28 PO 0945 Atorvastatin Calcium 80 MG 1700 08/27 1700 AC 08/27 PO 2308 Enoxaparin Sodium 40 MG DAILY 08/28 1000 AC 08/28 SC 0945 Lisinopril 10 MG DAILY 08/28 1000 AC 08/28 PO 0946 Meclizine HCl 0 .STK-MED ONE 08/27 2314 DC PO Meclizine HCl 12.5 MG TID 08/27 2200 AC 08/28 PO 0945 Oxycodone HCl 10 MG Q6P PRN 08/27 1530 AC PO Review of Systems Review of Systems: At present no headache no vertigo, no diplopia, no trouble with speech or swallowing She denies chest pain, breathing difficulty, vomiting No recent fever, rash, or swelling Oh fever The systems reviewed are negative,, Past History Travel History Traveled to [place] past 21 day No Medical History Blood Transfusion Hx: No Neurological: NONE EENT: NONE Cardiovascular: NONE Respiratory: NONE Gastrointestinal: NONE Hepatic: NONE Renal: NONE Musculoskeletal: osteoarthritis Psychiatric: NONE Endocrine: NONE Blood Disorders: NONE Cancer(s): NONE COUNSELING CASE MANAGER/Reproductive: NONE Surgical History Surgical History: non-contributory Psychosocial History Where Do You Live? Home Who Do You Live With? spouse, child Services at Home: None Primary Language: Irish Smoking Status: Never Smoked ETOH Use: denies use Illicit Drug Use: denies illicit drug use Exam & Diagnostic Data Vital Signs and I&O Family medical history unknown Vital Signs Date Time Temp Pulse Resp B/P B/P Pulse O2 O2 Flow FiO2 Mean Ox Delivery Rate 08/28 1212 97.0 51 18 128/64 96 Room Air Room Air 08/28 0946 62 181/75 08/28 0905 96.8 55 20 181/75 95 Room Air 08/28 0532 97.1 52 16 133/77 97 08/27 2331 96.6 57 16 131/64 95 Room Air 08/27 2020 96.5 55 20 124/62 97 Room Air 08/27 1806 56 16 138/60 97 Room Air Room Air 08/27 1700 53 16 150/66 98 Room Air 08/27 1544 97.9 53 16 176/72 98 Room Air Intake & Output 08/28 1600 08/28 0800 08/28 0000 Intake Total Output Total Balance Patient 175 lb Weight Alert and oriented Language functions fund of knowledge attention span concentration intact Heart sounds normal,no carotid bruits, distal pulses intact Extraocular movements full, pupils equal and reactive, fundi benign, visual nunn intact, hearing grossly intact, no facial weakness or facial sensory loss , palate tongue and shoulders normal Normal tone and strength upper and lower extremities No sensory loss to light touch bilaterally Deep tendon reflexes 1+ bilateral Coordinative functions upper extremities intact Mild imbalance when walking Last 48 Hours of Lab Results: Laboratory Tests 08/28 08/27 0530 1801 Chemistry Sodium (137 - 145 mmol/L) 139 Potassium (3.5 - 5.1 mmol/L) 4.5 Chloride (98 - 107 mmol/L) 106 Carbon Dioxide (22 - 30 mmol/L) 28 Anion Gap (5 - 16) 5 BUN (7 - 17 mg/dL) 20 H Creatinine (0.5 - 1.0 mg/dL) 0.7 Estimated GFR (>60 ml/min) > 60 BUN/Creatinine Ratio (7 - 25 %) 28.6 H Troponin I (< 0.11 ng/ml) < 0.01 Hematology CBC w Diff NO MAN DIFF REQ WBC (4.8 - 10.8 /CUMM) 5.4 RBC (4.20 - 5.40 /CUMM) 4.37 Hgb (12.0 - 16.0 G/DL) 12.8 Hct (37 - 47 %) 38.6 MCV (81.0 - 99.0 FL) 88.4 MCH (27.0 - 31.0 PG) 29.4 RDW (11.5 - 14.5 %) 15.4 H Plt Count (130 - 400 /CUMM) 246 MPV (7.4 - 10.4 FL) 9.3 Gran % (42.2 - 75.2 %) 35.7 L Lymphocytes % (20.5 - 51.1 %) 53.8 H Monocytes % (1.7 - 9.3 %) 8.5 Eosinophils % (0 - 5 %) 1.2 Basophils % (0.0 - 2.0 %) 0.8 Absolute Granulocytes (1.4 - 6.5 /CUMM) 1.9 Absolute Lymphocytes (1.2 - 3.4 /CUMM) 2.9 Absolute Monocytes (0.10 - 0.60 /CUMM) 0.5 Absolute Eosinophils (0.0 - 0.7 /CUMM) 0.1 Absolute Basophils (0.0 - 0.2 /CUMM) 0 PUBS MCHC (33.0 - 37.0 G/DL) 33.3 08/27 08/27 1339 1038 Chemistry Sodium (137 - 145 mmol/L) 139 Potassium (3.5 - 5.1 mmol/L) 4.3 Chloride (98 - 107 mmol/L) 106 Carbon Dioxide (22 - 30 mmol/L) 24 Anion Gap (5 - 16) 9 BUN (7 - 17 mg/dL) 25 H Creatinine (0.5 - 1.0 mg/dL) 0.5 Estimated GFR (>60 ml/min) > 60 BUN/Creatinine Ratio (7 - 25 %) 50.0 H Glucose (65 - 99 mg/dL) 97 Hemoglobin A1c (4.2 - 5.8 %) 5.7 Calcium (8.4 - 10.2 mg/dL) 9.0 Magnesium (1.6 - 2.3 mg/dL) 2.1 Total Bilirubin (0.2 - 1.3 mg/dL) 0.8 AST (14 - 36 U/L) 17 ALT (9 - 52 U/L) 36 Alkaline Phosphatase (<127 U/L) 83 Troponin I (< 0.11 ng/ml) < 0.01 Total Protein (6.3 - 8.2 g/dL) 6.9 Albumin (3.5 - 5.0 g/dL) 4.1 Globulin (1.9 - 4.2 gm/dL) 2.8 Albumin/Globulin Ratio (1.1 - 2.2 %) 1.5 Triglycerides (<150 mg/dL) 58 Cholesterol (<200 MG/DL) 232 H LDL Cholesterol, Calc (65 - 129 mg/dL) 130 H HDL Cholesterol (40 - 60 mg/dL) 91 H Cholesterol/HDL Ratio (0.00 - 4.23 %) 3 TSH (0.270 - 4.200 uIU/mL) 1.200 Hematology CBC w Diff NO MAN DIFF REQ WBC (4.8 - 10.8 /CUMM) 5.0 RBC (4.20 - 5.40 /CUMM) 4.58 Hgb (12.0 - 16.0 G/DL) 13.5 Hct (37 - 47 %) 40.4 MCV (81.0 - 99.0 FL) 88.3 MCH (27.0 - 31.0 PG) 29.5 RDW (11.5 - 14.5 %) 15.9 H Plt Count (130 - 400 /CUMM) 233 MPV (7.4 - 10.4 FL) 9.1 Gran % (42.2 - 75.2 %) 45.9 Lymphocytes % (20.5 - 51.1 %) 44.2 Monocytes % (1.7 - 9.3 %) 7.7 Eosinophils % (0 - 5 %) 1.1 Basophils % (0.0 - 2.0 %) 1.1 Absolute Granulocytes (1.4 - 6.5 /CUMM) 2.3 Absolute Lymphocytes (1.2 - 3.4 /CUMM) 2.2 Absolute Monocytes (0.10 - 0.60 /CUMM) 0.4 Absolute Eosinophils (0.0 - 0.7 /CUMM) 0.1 Absolute Basophils (0.0 - 0.2 /CUMM) 0.1 PUBS MCHC (33.0 - 37.0 G/DL) 33.4 Toxicology Urine Opiates Screen (>2000 NG/ML) < 100.00 Methadone Screen (>300 NG/ML) < 40 Barbiturate Screen (>200 NG/ML) < 60 Ur Phencyclidine Scrn (>25 NG/ML) < 6.00 Amphetamines Screen (>1000 NG/ML) < 100 U Benzodiazepines Scrn (>200 NG/ML) < 85 Urine Cocaine Screen (>300 NG/ML) < 50 Urine Cannabis Screen (>50 NG/ML) < 5.00 Serum Alcohol (<10 MG/DL) < 10.0 Urines Urine Color (YEL,AMB,STR) YEL Urine Clarity (CLEAR) CLEAR Urine pH (5.0 - 8.0) 7.0 Ur Specific [place] (1.001 - 1.035) 1.010 Urine Protein (NEG,<30 MG/DL) NEG Urine Ketones (NEG) NEG Urine Nitrite (NEG) NEG Urine Bilirubin (NEG) NEG Urine Urobilinogen (0.1 - 1.0 EU/dl) 0.2 Ur Leukocyte Esterase (NEG) NEG Ur Microscopic EXAM NOT REQUIRED Urine Hemoglobin (NEG) NEG Urine Glucose (N MG/DL) NEG Imaging/Other Studies: MRI BRAIN IMPRESSION: There are a few scattered chronic small vessel ischemic changes within the periventricular white matter. No evidence of acute territorial infarct or hemorrhage. Assessment/Plan Assessment: Transient neurologic event, possible TIA, possible hypertensive encephalopathy MRI scan of brain reviewed Recommendations: In terms appear to be resolving Patient feels much better Follow-up serially with Ankit De La Fuente MD Call if further Neurologic need Consult Acknowledgment - Thank you for your consult request.
[2016-08-28] MEDS ORDERED: LISINOPRIL10 M1 PO (14:28)
--- NOTE | 2016-08-28 14:36 | PN- Att Addend ---
Attending Addendum Attending Brief Note Patient seen and examined, denies any complaints. She is feeling better today. She was able to walk with physical therapy and did not feel as dizzy as as she did yesterday. Her blood pressure has improved. She does have a slightly low heart rate that she denies feeling any dizziness. Yesterday her dizziness was mostly related to posture. Her echo results reviewed and they look normal. Her blood pressure has improved. Her carotid Doppler ultrasound does not show any significant stenosis either. Her blood pressure has stabilized. She has no focal signs on the neuro exam. Slight bradycardia on tele monitor. TSH normal. Will have cardiology follow up with Dr. Byers. She is a 71-year-old female who was placed on telemetry observation hypertensive urgency as well as easiness with a question off posterior circulation CVA. On the studies including head MRI, carotid Doppler and color neck normal. This could be related to her hypertensive episode as hypertensive encephalopathy. The patient has improved on current regimen. Statin was added. Patient has walked with physical therapy and her vestibular tests are negative. Patient can be discharged home today and further follow-up Ankit De La Fuente MD as well as Dr. Byers as an outpatient.
== END 2016-08-28 15:56 ==
LOC: ERH 09:45 → ERHI 15:23 → CANBEDREQ 08-28 16:07
PROVIDERS: Internal Medicine Nephrology; Physician Assistant; ADMIT Internal Medicine
DX: R42 Dizziness and giddiness (principal); I16.0 Hypertensive urgency; R26.9 Unspecified abnormalities of gait and mobility; R53.1 Weakness; M17.0 Bilateral primary osteoarthritis of knee
CPT/HCPCS: 6090; 70551; 80307; 81003; 82436; 93005; 93010; 93306; 96372; 96374; 96375; 97112-GP; 97116-GP; 97161-GP; G0378; G0480; J1650; J2405; J7040